=== PATIENT | female | born 1980 | race African-American/Black ===

== ENCOUNTER 2017-10-05 12:24 | Emergency (ER) | payer MEDICAID ==
[2017-10-05] MEDS ORDERED: LORAZEPAM 1 MG TABLET PO ONE (12:54)
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
[2017-10-05 14:33] VITALS: BP 149/119
== END 2017-10-05 14:41 | disposition home or self-care (01) ==
LOC: ER 12:24
DX: R00.0 Tachycardia, unspecified (principal); F41.1 Generalized anxiety disorder; F43.0 Acute stress reaction; I10 Essential (primary) hypertension; Z86.14 Personal history of Methicillin resistant Staphylococcus aureus infection
CPT/HCPCS: 99283

== ENCOUNTER 2018-06-07 16:56 | Emergency (ER) | payer SELFPAY ==
[2018-06-07] MEDS ORDERED: IBUPROFEN 800 MG TABLET PO ONE (17:33)
[2018-06-07] MEDS ORDERED: NORMAL SALINE 1000 ML 1,000 ML IV ONE (17:38)
--- NOTE | 2018-06-07 17:39 | ER Document Report ---
ED Medical Screen (RME) - General Chief Complaint: Nausea/Vomiting Stated Complaint: VOMITING Time Seen by Provider: 06/07/18 17:32 Mode of Arrival: Wheelchair Information source: Parent Notes: 37-year-old female presented to ED for complaint of nausea vomiting diarrhea and fever times 4 days. Significant other states that she drove herself here but when she got here she has not been able to move her hand since. Patient does have a fever of 102.7 a pulse of 118 and is stiff on her hands. Lungs are clear at this time. Blood pressure is very high. Septic workup has been ordered and patient will be seen as soon as possible. I have greeted and performed a rapid initial assessment of this patient. A comprehensive ED assessment and evaluation of the patient, analysis of test results and completion of medical decision making process will be conducted by an additional ED providers. TRAVEL OUTSIDE OF THE [place] IN LAST 30 DAYS: No - Related Data Allergies/Adverse Reactions: No Known Allergies Allergy (Verified 12/25/13 09:11) Past Medical History - Social History Chew tobacco use (# tins/day): No Frequency of alcohol use: None Drug Abuse: None Family history: None - Past Medical History Cardiac Medical History: Reports: Hx Hypertension Denies: Hx Coronary Artery Disease, Hx Heart Attack Pulmonary Medical History: Denies: Hx Asthma, Hx Bronchitis, Hx COPD, Hx Pneumonia, Hx Tuberculosis Neurological Medical History: Denies: Hx Cerebrovascular Accident, Hx Seizures Renal/ Medical History: Denies: Hx Peritoneal Dialysis Musculoskeltal Medical History: Denies Hx Arthritis Skin Medical History: Reports Hx MRSA Past Surgical History: Denies: Hx Hysterectomy, Hx Pacemaker - Immunizations Hx Diphtheria, Pertussis, Tetanus Vaccination: Yes Physical Exam - Vital signs Vitals: Temp Pulse Resp BP Pulse Ox 102.8 F H 124 H 28 H 159/115 H 97 06/07/18 17:24 06/07/18 17:24 06/07/18 17:24 06/07/18 17:24 06/07/18 17:24 Course - Vital Signs Vital signs: Temp Pulse Resp BP Pulse Ox 102.7 F H 124 H 28 H 153/107 H 99 06/07/18 17:31 06/07/18 17:24 06/07/18 17:24 06/07/18 17:31 06/07/18 17:31
--- NOTE | 2018-06-07 18:19 | RADIOLOGY REPORT (SQ) ---
EXAM DESCRIPTION: CHEST 2 VIEWS COMPLETED DATE/TIME: 06/07/2018 6:08 pm REASON FOR STUDY: fever tachy cardic possible sepsis COMPARISON: None. EXAM PARAMETERS: NUMBER OF VIEWS: two views TECHNIQUE: Digital Frontal and Lateral radiographic views of the chest acquired. RADIATION DOSE: NA LIMITATIONS: none FINDINGS: LUNGS AND PLEURA: Bibasilar scarring or atelectasis. MEDIASTINUM AND HILAR STRUCTURES: No masses or contour abnormalities. HEART AND VASCULAR STRUCTURES: Cardiomegaly. BONES: No acute findings. HARDWARE: None in the chest. OTHER: No other significant finding. IMPRESSION: Cardiomegaly without acute abnormality of the lungs. Bibasilar scarring or atelectasis. TECHNICAL DOCUMENTATION: JOB ID: [id number] [employer]- All Rights Reserved Reading location - IP/workstation name: [email or web address]
[2018-06-07 18:38] LABS: ABSOLUTE LYMPHOCYTES (AUTO) 0.7 10^3/uL (0.5-4.7); ABSOLUTE MONOCYTES (AUTO) 0.6 10^3/uL (0.1-1.4); ABSOLUTE NEUT (AUTO) 8.7 10^3/uL (1.7-8.2); BASOPHILS % (AUTO) 0.3 % (0-2); HEMATOCRIT 39.4 % (36.0-47.0); HEMOGLOBIN 13.5 g/dL (12.0-15.5); LYMPHOCYTES % (AUTO) 7.1 % (13-45); MEAN CORPUSCULAR HEMOGLOBIN 27.5 pg (27.0-33.4); MEAN CORPUSCULAR HGB CONC 34.3 g/dL (32.0-36.0); MEAN CORPUSCULAR VOLUME 80 fl (80-97); MONOCYTES % (AUTO) 6.4 % (3-13); PLATELET COUNT 136 10^3/uL (150-450); RED BLOOD COUNT 4.91 10^6/uL (3.72-5.28); RED CELL DISTRIBUTION WIDTH 15.4 % (11.5-14.0); SEGMENTED NEUTROPHILS % (AUTO) 86.2 % (42-78); TOTAL CELLS COUNTED % (AUTO) 100 %; WHITE BLOOD COUNT 10.1 10^3/uL (4.0-10.5)
[2018-06-07 18:44] LABS: INTERNATIONAL RATION (INR) 0.94; PROTHROMBIN TIME 13.1 SEC (11.4-15.4)
[2018-06-07 18:52] LABS: VENOUS BLOOD BASE EXCESS 2.6 mmol/L; VENOUS BLOOD HCO3 24.1 mmol/L (20-32); VENOUS BLOOD PCO2 28.9 mmHg (35-63); VENOUS BLOOD PH 7.54 (7.30-7.42)
[2018-06-07 19:03] LABS: ALANINE AMINOTRANSFERASE 54 U/L (9-52); ALBUMIN 4.5 g/dL (3.5-5.0); ALKALINE PHOSPHATASE 82 U/L (38-126); ANION GAP 12 (5-19); ASPARTATE AMINO TRANSFERASE 54 U/L (14-36); BILIRUBIN,DIRECT 0.3 mg/dL (0.0-0.4); BILIRUBIN,TOTAL 0.8 mg/dL (0.2-1.3); BLOOD UREA NITROGEN 8 mg/dL (7-20); CALCIUM 9.6 mg/dL (8.4-10.2); CARBON DIOXIDE 25 mmol/L (22-30); CHLORIDE 100 mmol/L (98-107); GLUCOSE 149 mg/dL (75-110); POTASSIUM 3.7 mmol/L (3.6-5.0); SODIUM 136.7 mmol/L (137-145); TOTAL PROTEIN 8.2 g/dL (6.3-8.2)
[2018-06-07] MEDS ORDERED: ONDANSETRON HCL INJ/PF 4 MG/2 ML SDV IV ONE (20:33)
--- NOTE | 2018-06-07 20:36 | ER Document Report ---
ED General - General Chief Complaint: Nausea/Vomiting Stated Complaint: VOMITING Time Seen by Provider: 06/07/18 17:32 Mode of Arrival: Wheelchair Notes: Patient is a 37-year-old female without chronic medical problems who presents with 4 days of fever, cough, vomiting and diarrhea. Patient states that her symptoms started gradually, progressively worsened over that time. Regards them as being severe in nature. Nothing improves or worsens her symptoms. Has not seen her primary care physician regarding today's concerns. No known sick contacts. Denies history of similar symptoms in the past. Has had difficulty tolerating oral intake secondary to vomiting. States she feels somewhat lightheaded and dehydrated. Denies overt shortness of breath. TRAVEL OUTSIDE OF THE [place] IN LAST 30 DAYS: No - Related Data Allergies/Adverse Reactions: No Known Allergies Allergy (Verified 12/25/13 09:11) Past Medical History - General Information source: Parent - Social History Smoking Status: Never Smoker Chew tobacco use (# tins/day): No Frequency of alcohol use: None Drug Abuse: None Lives with: Spouse/Significant other Family History: Reviewed & Not Pertinent Patient has suicidal ideation: No Patient has homicidal ideation: No - Past Medical History Cardiac Medical History: Reports: Hx Hypertension Denies: Hx Coronary Artery Disease, Hx Heart Attack Pulmonary Medical History: Denies: Hx Asthma, Hx Bronchitis, Hx COPD, Hx Pneumonia, Hx Tuberculosis Neurological Medical History: Denies: Hx Cerebrovascular Accident, Hx Seizures Renal/ Medical History: Denies: Hx Peritoneal Dialysis Musculoskeletal Medical History: Denies Hx Arthritis Skin Medical History: Reports Hx MRSA Past Surgical History: Denies: Hx Hysterectomy, Hx Pacemaker - Immunizations Hx Diphtheria, Pertussis, Tetanus Vaccination: Yes Review of Systems - Review of Systems Notes: Constitutional: Positive for fever. HENT: Negative for sore throat. Eyes: Negative for visual changes. Cardiovascular: Negative for chest pain. Respiratory: Negative for shortness of breath. Positive for cough Gastrointestinal: Negative for abdominal pain, positive for vomiting and diarrhea. Genitourinary: Negative for dysuria. Musculoskeletal: Negative for back pain. Skin: Negative for rash. Neurological: Negative for headaches, weakness or numbness. 10 point ROS negative except as marked above and in HPI. Physical Exam - Vital signs Vitals: Temp Pulse Resp BP Pulse Ox 102.8 F H 124 H 28 H 159/115 H 97 06/07/18 17:24 04/18/19 17:24 06/07/18 17:24 06/07/18 17:24 06/07/18 17:24 Interpretation: Hypertensive, Tachycardic, Tachypneic, Febrile Notes: PHYSICAL EXAMINATION: GENERAL: Appears moderately unwell but in no acute distress HEAD: Atraumatic, normocephalic. EYES: Pupils equal round and reactive to light, extraocular movements intact, sclera anicteric, conjunctiva are normal. ENT: nares patent, oropharynx clear without exudates. Moderately dry mucous membranes. NECK: Normal range of motion, supple without lymphadenopathy LUNGS: Slightly diminished at the bases bilaterally no wheezes rales or rhonchi. HEART: Regular tachycardia without murmurs ABDOMEN: Soft, nontender, normoactive bowel sounds. No guarding, no rebound. No masses appreciated. EXTREMITIES: Normal range of motion, no pitting or edema. No cyanosis. NEUROLOGICAL: No focal neurological deficits. Moves all extremities spontaneously and on command. PSYCH: Normal mood, normal affect. SKIN: Warm, Dry, normal turgor, no rashes or lesions noted. Course - Re-evaluation Re-evalutation: 06/07/18 20:34 Patient presents with nausea, vomiting, diarrhea, cough for the past 4 days. Symptom allergy is most consistent with influenza versus a possible atypical pneumonia. Chest x-ray read as cardiomegaly with possible atelectatic changes at the bases. This does not make sense of the patient's clinical context she has no history of CHF, and she has no stigmata of this diagnosis on exam. Bedside ultrasound echocardiogram does not demonstrate any evidence of dyskinesia or regional wall motion of normality. No pericardial effusion. No risk factors for endocarditis, and clinical history, bedside ultrasound not consistent with pericarditis or myocarditis. Will obtain BNP to further clarify. Patient will receive antiemetics and antipyretics, influenza swab and be reassessed. 06/07/18 23:40 BNP is normal. Influenza test negative. Given negative flu testing, chest x- ray appearance, fever, suspect that this is more of a community acquired atypical or bilateral pneumonia. Patient has been started on subtraction azithromycin. Will be discharged home on azithromycin and amoxicillin combined. Patient has saturations that are within acceptable limits, saturating 99% on room air. No tachypnea. Tolerating oral intake without difficulty. Ambulatory without distress or hypoxia. At this time will discharge with return precautions and follow-up recommendations. Verbal discharge instructions given a the bedside and opportunity for questions given. Medication warnings reviewed. Patient is in agreement with this plan and has verbalized understanding of return precautions and the need for primary care follow-up in the next 24-72 hours. 06/08/18 04:28 - Vital Signs Vital signs: Temp Pulse Resp BP Pulse Ox 98.7 F 95 15 135/70 H 98 06/08/18 00:57 06/08/18 00:57 06/08/18 00:57 06/08/18 00:57 06/08/18 00:57 - Laboratory Result Diagrams: 06/07/18 18:10 06/07/18 18:10 Laboratory results interpreted by me: 06/07/18 06/07/18 06/07/18 18:10 18:10 18:10 RDW 15.4 H Plt Count 136 L Seg Neutrophils % 86.2 H Lymphocytes % 7.1 L Absolute Neutrophils 8.7 H VBG pH 7.54 H VBG pCO2 28.9 L Sodium 136.7 L Glucose 149 H POC Glucose AST 54 H ALT 54 H 06/07/18 18:13 RDW Plt Count Seg Neutrophils % Lymphocytes % Absolute Neutrophils VBG pH VBG pCO2 Sodium Glucose POC Glucose 158 H AST ALT - Diagnostic Test Radiology reviewed: Image reviewed, Reports reviewed Radiology results interpreted by me: 06/07/18 23:41 Chest x-ray: Scattered infiltrates in the bases bilaterally Discharge - Discharge Clinical Impression: Fever Qualifiers: Fever type: unspecified Qualified Code(s): R50.9 - Fever, unspecified Pneumonia of both lower lobes Qualifiers: Pneumonia type: due to unspecified organism Qualified Code(s): J18.1 - Lobar pneumonia, unspecified organism Condition: Stable Disposition: HOME, SELF-CARE Additional Instructions: You have been diagnosed with a pneumonia. It is very important that you take all of your antibiotics until they are gone even if you are feeling better. Please return to the emergency department immediately if you began having worsening shortness of breath, become confused, have worsening pain, pass out, have persistent vomiting that prevents you from being able to drink fluids for more than 12 hours, or have any other symptoms that are worrisome to you. Please follow-up with your primary care doctor in the next 1-2 days. Prescriptions: Amoxicillin 1 tab PO TID #30 tab Azithromycin [Zithromax 250 mg Tablet] 250 mg PO DAILY #4 tablet
[2018-06-07 21:10] LABS: A TYPE INFLUENZA AG NEGATIVE (NEGATIVE); B INFLUENZA AG NEGATIVE (NEGATIVE)
[2018-06-07] MEDS ORDERED: AZITHROMYCIN 250 MG TABLET PO ONE (22:24)
[2018-06-07] MEDS ORDERED: CEFTRIAXONE INJ 1000 MG VIAL IV ONE (22:24)
--- NOTE | 2018-06-07 22:42 | EKG REPORT ---
SEVERITY:- ABNORMAL ECG - SINUS RHYTHM LEFT VENTRICULAR HYPERTROPHY BORDERLINE T ABNORMALITIES, INFERIOR LEADS : Confirmed by: Amina Lemus MD 07-Jun-2018 22:42:08
[2018-06-07] MEDS ORDERED: ONDANSETRON ODT 4 MG TAB (6 TAB/ER DISP) PO PRN (23:44)
[2018-06-08 01:20] VITALS: BP 135/70
== END 2018-06-08 00:57 | disposition home or self-care (01) ==
LOC: ER 16:56
DX: J18.1 Lobar pneumonia, unspecified organism (principal); R50.9 Fever, unspecified; R11.2 Nausea with vomiting, unspecified; R05 Cough; R19.7 Diarrhea, unspecified; I10 Essential (primary) hypertension
CPT/HCPCS: 93005; 99284; 96361; 96375; 96365; 36415; 87040; 82962; 85025; 85610; 80053; 82803; 83605; 87804; 83880; 71046; 93010; J0696; J2405; J7030